=== PATIENT | male | born 1970 | race Caucasian/White ===

== ENCOUNTER 2017-03-28 18:06 | Emergency (ER) | payer MEDICARE ==
[~2017-03-28 18:06] MED LIST: CIPR-249 PO; CLIN150C14 PO; DICL75TA PO; DOCU10CA PO; FLAG500T PO; KEPP1TAB PO; LAMI1TAB9 PO; LEVA750T7 PO; LISI20TA PO; METO25TAB PO; MILKSUS PO; MULTCAP PO; NORCOTAB PO; PERC5TAB12 PO; PRAV20TA2 PO; SERT50TA PO; TYLE325T5 PO
[2017-03-28] MEDS ORDERED: AMLO5TAB2 PO (18:39)
[2017-03-28] MEDS ORDERED: GASTROGRAFIN SOLUTION 30ML (Q9963) PO ONE (19:15)
[2017-03-28] MEDS ORDERED: NS 1,000 ML IV ONE (19:15)
[2017-03-28] MEDS: MORPHINE 4 MG/ML 1ML SYRINGE IV PRN ×2 (19:30→19:36)
[2017-03-28 19:31] LABS: BASO # 0.1 10^3/uL (0.0-0.2); BASO % 0.8 % (0.0-1.0); EOS # 0.3 10^3/uL (0.0-0.50); EOS % 3.8 % (0.0-3.0); IMMATURE GRANULOCYTE % 0.7 % (0-0); LYMPH # 2.5 10^3/uL (1.5-4.5); LYMPH % 33.4 % (24.0-44.0); MEAN CORPUSCULAR HEMOGLOBIN 33.1 pg (27.0-33.0); MEAN CORPUSCULAR HGB CONC 35.3 g/dl (32.0-36.5); MEAN CORPUSCULAR VOLUME 93.6 fl (80.0-96.0); MONO # 0.8 10^3/uL (0.0-0.8); MONO % 10.2 % (0.0-5.0); NEUTROPHILS # 3.9 10^3/uL (1.8-7.7); NEUTROPHILS % 51.1 % (36.0-66.0); PLATELET COUNT, AUTOMATED 279 10^3/uL (150-450); RED CELL DISTRIBUTION WIDTH 12.3 % (11.5-14.5); WHITE BLOOD COUNT 7.6 10^3/uL (4.0-10.0)
[2017-03-28] MEDS: ONDANSETRON 4MG/2ML VIAL (J2405) IV PRN ×2 (19:31→19:37)
[2017-03-28 19:46] LABS: INR 0.9
[2017-03-28 19:58] LABS: ALBUMIN/GLOBULIN RATIO 1.21 (1.00-1.93); ALKALINE PHOSPHATASE 67 U/L (45-117); ALT/SGPT 52 U/L (12-78); ANION GAP 10 MEQ/L (8-16); AST/SGOT 62 U/L (15-37); BILIRUBIN,DIRECT < 0.1 MG/DL (0.0-0.2); BILIRUBIN,TOTAL 0.2 MG/DL (0.2-1.0); BLOOD UREA NITROGEN 6 MG/DL (7-18); CALCIUM LEVEL 8.8 MG/DL (8.5-10.1); CARBON DIOXIDE LEVEL 24 MEQ/L (21-32); CHLORIDE LEVEL 99 MEQ/L (98-107); CREATININE FOR GFR 0.95 MG/DL (0.70-1.30); GLOMERULAR FILTRATION RATE > 60.0 (>60); GLUCOSE, FASTING 73 MG/DL (70-105); POTASSIUM SERUM 3.8 MEQ/L (3.5-5.1); SODIUM LEVEL 133 MEQ/L (136-145); TOTAL PROTEIN 7.3 GM/DL (6.4-8.2)
[2017-03-28] MEDS ORDERED: ISOVUE-370 76% 100ML VIAL (Q9967) As Ordered ONE (21:15)
--- NOTE | 2017-03-28 22:00 | REPUSA ---
CT of the abdomen and pelvis with contrast Clinical statement: Pain. Technique: Multiple axial CT images were obtained from the base of the lungs through the floor of the pelvis utilizing 5 mm axial slices after administration of oral and nonionic intravenous contrast. C oronal and sagittal reconstructions were also obtained. Comparison: 05/27/2014. Findings: Chest: The visualized lung bases are clear. There is a moderate sized hiatal hernia. Abdomen: The spleen, pancreas, kidneys, gallbladder, and adrenal glands are unremarkable. There is di ffuse low attenuation of the liver. The aorta is within normal limits. There is no evidence of abdomi nal lymphadenopathy or ascites. Pelvis: The bowel is unremarkable, with no obstructive or inflammatory changes. The appendix is bobo l. The urinary bladder is within normal limits. The other pelvic structures appear grossly intact. Th ere is no evidence of pelvic lymphadenopathy or ascites. Bones: There are no suspicious osseous abnormalities seen. There is moderate degenerative disc diseas e at L5/S1. Impression: 1. No obstructive or inflammatory bowel changes. 2. Moderate degenerative disc disease at L5/S1. 3. Diffuse fatty infiltration of the liver. 4. Moderate sized hiatal hernia.
[2017-03-28 22:20] VITALS: BP 132/82
== END 2017-03-28 22:34 | disposition home or self-care (01) ==
LOC: M ED 18:06
DX: K62.5 Hemorrhage of anus and rectum (principal); K64.8 Other hemorrhoids; Z72.0 Tobacco use
CPT/HCPCS: 74177; 80048; 80076; 81001; 83690; 85025; 85610; 85730; 86850; 86900; 86901; 96374; 96375; 99283; G0480; J2405; Q9963; Q9967

== ENCOUNTER 2018-02-21 09:51 | Emergency (ER) | payer MEDICARE ==
[2018-02-21 10:14] LABS: BASO # 0.1 10^3/uL (0.0-0.2); BASO % 0.5 % (0.0-1.0); EOS # 0.2 10^3/uL (0.0-0.50); EOS % 1.7 % (0.0-3.0); HEMOGLOBIN 15.2 g/dl (13.5-17.5); IMMATURE GRANULOCYTE % 0.6 % (0-3.0); LYMPH # 2.1 10^3/uL (1.5-4.5); LYMPH % 22.6 % (24.0-44.0); MEAN CORPUSCULAR HEMOGLOBIN 32.6 pg (27.0-33.0); MEAN CORPUSCULAR HGB CONC 33.8 g/dl (32.0-36.5); MEAN CORPUSCULAR VOLUME 96.6 fl (80.0-96.0); MONO # 0.8 10^3/uL (0.0-0.8); MONO % 8.7 % (0.0-5.0); NEUTROPHILS # 6.2 10^3/uL (1.8-7.7); NEUTROPHILS % 65.9 % (36.0-66.0); PLATELET COUNT, AUTOMATED 245 10^3/uL (150-450); RED BLOOD COUNT 4.66 10^6/uL (4.30-6.10); RED CELL DISTRIBUTION WIDTH 12.4 % (11.5-14.5); WHITE BLOOD COUNT 9.5 10^3/uL (4.0-10.0)
[2018-02-21 10:28] LABS: INR 0.93; PROTHROMBIN TIME 12.6 SECONDS (12.1-14.4)
[2018-02-21 11:01] LABS: ALKALINE PHOSPHATASE 72 U/L (45-117); ALT/SGPT 31 U/L (12-78); ANION GAP 10 MEQ/L (8-16); AST/SGOT 39 U/L (7-37); BILIRUBIN,DIRECT < 0.1 MG/DL (0.0-0.2); BILIRUBIN,TOTAL 0.3 MG/DL (0.2-1.0); BLOOD UREA NITROGEN 9 MG/DL (7-18); CALCIUM LEVEL 9.6 MG/DL (8.5-10.1); CARBON DIOXIDE LEVEL 21 MEQ/L (21-32); CHLORIDE LEVEL 108 MEQ/L (98-107); CK-MB VALUE MASS < 1.0 NG/ML (<3.6); CPK CREATINE PHOSPHOKINASE 105 U/L (39-308); CREATININE FOR GFR 0.94 MG/DL (0.70-1.30); GLOMERULAR FILTRATION RATE > 60.0 (>60); GLUCOSE, FASTING 124 MG/DL (70-100); LIPASE 187 U/L (73-393); MB/CK RELATIVE INDEX 0.95 (< OR =4); NT-PRO BNP 56 PG/ML (<125); POTASSIUM SERUM 4.5 MEQ/L (3.5-5.1); SODIUM LEVEL 139 MEQ/L (136-145); THYROID STIMULATING HORMONE 0.629 uIU/ML (0.358-3.740); TOTAL PROTEIN 7.5 GM/DL (6.4-8.2); TROPONIN I < 0.02 NG/ML (< 0.10)
[2018-02-21 11:03] LABS: ALBUMIN/GLOBULIN RATIO 0.88 (1.00-1.93)
[2018-02-21 17:28] LABS: CK-MB VALUE MASS < 1.0 NG/ML (<3.6); CPK CREATINE PHOSPHOKINASE 75 U/L (39-308); MB/CK RELATIVE INDEX 1.33 (< OR =4); TROPONIN I < 0.02 NG/ML (< 0.10)
== END 2018-02-21 17:41 | disposition home or self-care (01) ==
LOC: M ED 09:51
DX: R07.9 Chest pain, unspecified (principal); K44.9 Diaphragmatic hernia without obstruction or gangrene; I10 Essential (primary) hypertension; G40.909 Epilepsy, unspecified, not intractable, without status epilepticus; F17.200 Nicotine dependence, unspecified, uncomplicated; Z88.0 Allergy status to penicillin; Z79.899 Other long term (current) drug therapy
CPT/HCPCS: 71045

== ENCOUNTER 2018-06-27 12:02 | Emergency (ER) | payer MEDICARE ==
[~2018-06-27] VITALS: Ht 182.9 cm; Wt 84.5 kg
[~2018-06-27 12:02] MED LIST changes: +AMLO5TAB6 PO; +ASPI81TA85 PO; +MILK120011 PO; -MILKSUS PO; +PEPC1TAB5 PO; +SUCR1SS PO
[2018-06-27] MEDS ORDERED: KEPP1TAB PO (12:14)
[2018-06-27] MEDS ORDERED: METO1TAB87 PO (12:14)
[2018-06-27] MEDS ORDERED: LOSA100T8 PO (12:14)
[2018-06-27] MEDS ORDERED: MECLIZINE 25 MG TABLET PO ONE (12:45)
[2018-06-27] MEDS ORDERED: NS 1,000 ML IV ONE (12:45)
[2018-06-27 12:56] LABS: BASO % 0.3 % (0.0-1.0); EOS # 0.1 10^3/uL (0.0-0.50); EOS % 0.7 % (0.0-3.0); HEMATOCRIT 42.7 % (42.0-52.0); LYMPH % 21.3 % (24.0-44.0); MEAN CORPUSCULAR HEMOGLOBIN 32.8 pg (27.0-33.0); MEAN CORPUSCULAR HGB CONC 35.1 g/dl (32.0-36.5); MEAN CORPUSCULAR VOLUME 93.4 fl (80.0-96.0); MONO % 10.3 % (0.0-5.0); NEUTROPHILS # 6.4 10^3/uL (1.8-7.7); PLATELET COUNT, AUTOMATED 294 10^3/uL (150-450); RED BLOOD COUNT 4.57 10^6/uL (4.30-6.10); WHITE BLOOD COUNT 9.6 10^3/uL (4.0-10.0)
[2018-06-27 13:32] LABS: ACETAMINOPHEN LEVEL < 2.0 UG/ML (10.0-30.0); ALBUMIN 4.1 GM/DL (3.2-5.2); ALT/SGPT 76 U/L (12-78); BILIRUBIN,DIRECT 0.2 MG/DL (0.0-0.2); BILIRUBIN,TOTAL 0.8 MG/DL (0.2-1.0); BLOOD UREA NITROGEN 7 MG/DL (7-18); CALCIUM LEVEL 9.4 MG/DL (8.5-10.1); CARBON DIOXIDE LEVEL 22 MEQ/L (21-32); CHLORIDE LEVEL 96 MEQ/L (98-107); CPK CREATINE PHOSPHOKINASE 103 U/L (39-308); CREATININE FOR GFR 0.98 MG/DL (0.70-1.30); ETHYL ALCOHOL (ETHANOL) < 0.003 % (0.000-0.010); GLOMERULAR FILTRATION RATE > 60.0 (>56); GLUCOSE, FASTING 105 MG/DL (70-100); MB/CK RELATIVE INDEX 1.17 (< OR =4); SALICYLATE LEVEL 2.7 MG/DL (5.0-30.0); SODIUM LEVEL 129 MEQ/L (136-145); THYROID STIMULATING HORMONE 0.489 uIU/ML (0.358-3.740); TOTAL PROTEIN 7.6 GM/DL (6.4-8.2); TROPONIN I < 0.02 NG/ML (< 0.10)
--- NOTE | 2018-06-27 13:41 | REP ---
CT Head without contrast HISTORY: altered mental status COMPARISON: 02/05/2018 Areas of decreased attenuation are present in the periventricular white matter. This represents small-vessel ischemic disease. There is no intraparenchymal hemorrhage, acute infarct, mass or midline shift. The ventricular system and cortical sulci as well as subarachnoid space in the posterior fossa are dilated consistent with mild volume loss. There is no extra cerebral collection. There is no fracture. The visualized sinuses are clear. Mucosal thickening is present in the right middle ear cavity and mastoid air cells. The right mastoid is sclerotic. IMPRESSION: 1. Small vessel ischemic disease. 2. Minimal volume loss. 3. Findings consistent with chronic mastoiditis. Electronically Signed by Johnathan Carlson MD 06/27/2018 01:33 P
[2018-06-27] MEDS ORDERED: MECL-68 PO (13:57)
[2018-06-27 14:14] VITALS: BP 138/72
--- NOTE | 2018-06-27 20:10 | ECGEPIP ---
Stationary ECG Study - ED Test Date: 2018-06-27 Pat Name: KEYSHA HERNANDEZ Department: Room: - Gender: M Payroll Consultant: gee : [id number] Requested By: GLORIA CAM Order Number: [id number] Reading MD: Mario Corona Measurements Intervals [place] Rate: 79 P: 61 FL: 166 QRS: -33 QRSD: 112 T: 12 QT: 375 QTc: 432 Interpretive Statements SINUS RHYTHM MARKED LEFT AXIS DEVIATION INCOMPLETE RIGHT BUNDLE BRANCH BLOCK NONSPECIFIC ST T WAVE CHANGES CW 02/21/[address] T WAVE CHANGES Electronically Signed On 06-27-2018 20:10:13 EST by Mario Corona
--- NOTE | 2018-06-30 09:20 | ED PDOC ---
Post-Departure Follow-Up dr omreno faxed formal report of ct head for fu Mario Conroy MD Jun 30, 2018 09:20
== END 2018-06-27 14:15 | disposition home or self-care (01) ==
LOC: M ED 12:02 → EDBD 12:02 → M ED 14:15
DX: R42 Dizziness and giddiness (principal); R53.1 Weakness; E87.1 Hypo-osmolality and hyponatremia; R56.9 Unspecified convulsions; I11.9 Hypertensive heart disease without heart failure; F32.9 Major depressive disorder, single episode, unspecified; F17.200 Nicotine dependence, unspecified, uncomplicated; Z88.0 Allergy status to penicillin; Z79.899 Other long term (current) drug therapy; Z79.82 Long term (current) use of aspirin
CPT/HCPCS: 70450; 80048; 80076; 82550; 82553; 84443; 84484; 85025; 93005; 93041; 94760; 96360; 96361; 99284; G0480

== ENCOUNTER → 2018-12-19 | Outpatient (REF) | payer MEDICARE ==
[~2018-12-19] MED LIST changes: +HYDR-3715 PO; +LOSA100T8 PO; +MECL-68 PO; +METO1TAB63 PO; +METO1TAB87 PO; -METO25TAB PO; -NORCOTAB PO; +SERT-141 PO; -SERT50TA PO
[2018-12-24 08:06] LABS: LAMOTRIGINE (LAMICTAL) 11.4 ug/mL (2.0-20.0); VITAMIN B1 LEVEL WHOLE BLOOD 112.9 nmol/L (66.5-200.0)
== END ==
LOC: M LAB REF 16:40
PROVIDERS: ATTEND Internal Medicine
DX: R41.3 Other amnesia (principal)

== ENCOUNTER 2019-08-13 03:40 | Emergency (ER) | payer MEDICARE ==
[~2019-08-13] VITALS: Ht 182.9 cm; Wt 81.8 kg
[~2019-08-13 03:40] MED LIST changes: -LISI20TA PO; +LISI20TA19 PO; -MECL-68 PO; +MECL1TAB31 PO
[2019-08-13] MEDS ORDERED: MORPHINE 10 MG/ML 1ML VIAL (J2270) IM ONE (05:00)
[2019-08-13] MEDS ORDERED: BUPIVACAINE LIPOSOME/PF 1.3% 20ML VIAL (13.3MG/ML)(EXPAREL)(C9290 PER1MG) INFIL ONE (05:00)
--- NOTE | 2019-08-13 05:06 | REPVR ---
PROCEDURE INFORMATION: Exam: CT Head Without Contrast Exam date and time: 08/13/19 (4:08am) Age: 49 years old Clinical indication: Headache. Fall, hitting his head. TECHNIQUE: Imaging protocol: Computed tomography of the head without contrast. Radiation optimization: All CT scans at this facility use at least one of these dose optimization techniques: automated exposure control; mA and/or kV adjustment per patient size (includes targeted exams where dose is matched to clinical indication); or iterative reconstruction. COMPARISON: CT HEAD of 06/27/19 FINDINGS: Brain: Atrophic changes (perhaps out of proportion to the stated age of the patient). No acute hemorrhage. No mass effect. Ventricles: Normal. No ventriculomegaly. Bones/joints: Unremarkable. No acute fracture. Sinuses: Visualized sinuses are unremarkable. No air-fluid levels. Mastoid air cells: Visualized mastoid air cells are well aerated. Soft tissues: Unremarkable. IMPRESSION: No acute intracranial pathology is appreciated. Electronically signed by: Jocelyn Schroeder On 08/13/2019 05:06:41 AM
[2019-08-13 05:10] VITALS: BP 133/67
--- NOTE | 2019-08-13 08:16 | REP ---
Left rib series: Five views including PA chest. History: Injury in a fall to the left side. Comparison chest x-ray: February 21, 2018. Findings: A small hiatal hernia is noted. PA chest radiograph shows no evidence of pneumothorax or hydrothorax. Heart is not enlarged. Mediastinum is not widened. There is an old healed fracture involving the right anterior 5th rib. 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 This is unchanged from 2015 prior study, no acute rib fracture is appreciated. The rib cage is otherwise radiographically intact. Impression: No acute rib fracture noted. Old deformity left lateral 6th rib. Healed fracture on the right. Electronically Signed by Daniel Larios MD 08/13/2019 08:26 A
== END 2019-08-13 05:15 | disposition home or self-care (01) ==
LOC: M ED 03:40
DX: S22.32XA Fracture of one rib, left side, initial encounter for closed fracture (principal); W01.10XA Fall on same level from slipping, tripping and stumbling with subsequent striking against unspecified object, initial encounter; Y92.410 Unspecified street and highway as the place of occurrence of the external cause; Y93.K1 Activity, walking an animal; Y99.9 Unspecified external cause status; Z87.81 Personal history of (healed) traumatic fracture; M89.9 Disorder of bone, unspecified; I10 Essential (primary) hypertension; R56.9 Unspecified convulsions; F17.200 Nicotine dependence, unspecified, uncomplicated; Z79.899 Other long term (current) drug therapy; Z88.0 Allergy status to penicillin
CPT/HCPCS: 64420; 70450; 71101; 96374; 99284; C9290; J2270

== ENCOUNTER → 2022-02-23 | Outpatient (REF) | payer MEDICARE ==
[~2022-02-23] MED LIST changes: +AMLO1TAB24 PO; -AMLO5TAB6 PO; -ASPI81TA85 PO; +ASPI81TA86 PO; -CLIN150C14 PO; +CLIN150C17 PO; -LISI20TA19 PO; +LISI20TA35 PO
[2022-02-23 19:28] LABS: VITAMIN B12 LEVEL 477 PG/ML (247-911)
[2022-02-24 10:03] LABS: TOTAL PROTEIN 8.2 GM/DL (6.4-8.2)
[2022-02-26 11:47] LABS: ALBUMIN 4.93 GM/DL (3.29-5.55); ALBUMIN % 60.1 % (55.8-66.1); ALPHA-1-GLOBULIN % 3.7 % (2.9-4.9); ALPHA-2-GLOBULINS % 7.3 % (7.1-11.8); BETA-1-GLOBULINS % 5.1 % (4.7-7.2); BETA-2-GLOBULINS % 3.1 % (3.2-6.5); GAMMA GLOBULIN % 20.7 % (11.1-18.8)
[2022-02-26 11:48] LABS: BETA-1-GLOBULINS 0.42 GM/DL (0.28-0.60); BETA-2-GLOBULINS 0.25 GM/DL (0.19-0.55)
== END ==
LOC: M LAB REF 16:05
PROVIDERS: ATTEND Internal Medicine
DX: G40.909 Epilepsy, unspecified, not intractable, without status epilepticus (principal); R41.3 Other amnesia

== ENCOUNTER → 2022-09-10 | Outpatient (CLI) | payer MEDICARE | LOC: M RAD 09:36 | PROVIDERS: ATTEND Internal Medicine | DX: F17.210 Nicotine dependence, cigarettes, uncomplicated (principal) ==

== ENCOUNTER 2023-01-21 14:40 | Emergency (ER) | payer MEDICARE ==
[~2023-01-21] VITALS: Ht 182.9 cm; Wt 79.5 kg
[2023-01-21 14:56] VITALS: BP 135/86; TEMP 96.7; O2SAT 100
== END 2023-01-21 16:29 | disposition left against medical advice (07) ==
LOC: M ED 14:40
DX: R10.9 Unspecified abdominal pain (principal); Z53.21 Procedure and treatment not carried out due to patient leaving prior to being seen by health care provider

== ENCOUNTER → 2023-02-18 | Outpatient (REF) | payer MEDICARE ==
[~2023-02-18] MED LIST changes: +MECL-209 PO; -MECL1TAB31 PO
[2023-02-18 19:55] LABS: FOLATE 11.7 NG/ML (>5.4)
== END ==
LOC: M LAB REF 16:07
PROVIDERS: ATTEND Internal Medicine
DX: F10.10 Alcohol abuse, uncomplicated (principal); R41.3 Other amnesia; G40.909 Epilepsy, unspecified, not intractable, without status epilepticus

== ENCOUNTER → 2023-10-18 | Outpatient (CLI) | payer MEDICARE | LOC: M RAD 10:27 | PROVIDERS: ATTEND Internal Medicine | DX: Z87.81 Personal history of (healed) traumatic fracture (principal) ==

== ENCOUNTER → 2024-03-01 | Outpatient (REF) | payer MEDICARE | LOC: M LAB REF 16:57 | PROVIDERS: ATTEND Internal Medicine | DX: R25.1 Tremor, unspecified (principal); G40.909 Epilepsy, unspecified, not intractable, without status epilepticus ==

== ENCOUNTER → 2024-03-08 | Outpatient (REF) | payer MEDICARE | LOC: M LAB REF 16:19 | PROVIDERS: ATTEND Internal Medicine | DX: E87.1 Hypo-osmolality and hyponatremia (principal) ==

== ENCOUNTER → 2024-03-09 | Outpatient (REF) | payer MEDICARE ==
[2024-03-09 17:05] LABS: OSMOLALITY URINE 460 MOSM/KG (50-1400)
[2024-03-09 17:27] LABS: SODIUM,RANDOM URINE 72 MMOL/L
== END ==
LOC: M LAB REF 16:23
PROVIDERS: ATTEND Internal Medicine
DX: E87.1 Hypo-osmolality and hyponatremia (principal)

== ENCOUNTER 2024-10-30 09:05 | Day surgery (SDC) | payer MEDICARE ==
[~2024-10-30] VITALS: Ht 182.9 cm; Wt 69.7 kg
[~2024-10-30 09:05] MED LIST changes: +RA M200C4 PO
[2024-10-30] MEDS ORDERED: LIDOCAINE 2% 100MG/5ML SDV (FOR ANES.) As Ordered ONE (09:28)
[2024-10-30] MEDS ORDERED: propofoL 200 MG/20 ML VIAL As Ordered ONE (09:28)
[2024-10-30 10:05] VITALS: TEMP 97
[2024-10-30 10:20] VITALS: BP 126/75; O2SAT 99
== END 2024-10-30 10:35 | disposition home or self-care (01) ==
LOC: M OPP 09:05
PROVIDERS: ATTEND Surgery
DX: Z12.11 Encounter for screening for malignant neoplasm of colon (principal); D12.6 Benign neoplasm of colon, unspecified; K64.8 Other hemorrhoids; K64.4 Residual hemorrhoidal skin tags; Z80.0 Family history of malignant neoplasm of digestive organs; Z88.0 Allergy status to penicillin; Z79.899 Other long term (current) drug therapy; R56.01 Complex febrile convulsions; J44.9 Chronic obstructive pulmonary disease, unspecified; F17.210 Nicotine dependence, cigarettes, uncomplicated; Z98.0 Intestinal bypass and anastomosis status